=== PATIENT | female | born 1980 | race Caucasian/White ===

== ENCOUNTER 2021-03-17 20:19 | Emergency (ER) | payer OTHER ==
[~2021-03-17] VITALS: Ht 167.6 cm; Wt 85.0 kg
[2021-03-17] MEDS ORDERED: FLUORESCEIN OPHTHALMIC 1 MG STRIP EACHEYE ONE (20:30)
[2021-03-17] MEDS ORDERED: PROPARACAINE OPHTH 0.5%, 15ML EACHEYE ONE (20:30)
[2021-03-17] MEDS ORDERED: FLUORESCEIN OPHTHALMIC 1 MG STRIP ONE (23:00)
[2021-03-17] MEDS ORDERED: PROPARACAINE OPHTH 0.5%, 15ML ONE (23:00)
[2021-03-17 23:04] VITALS: BP 149/76
--- NOTE | 2021-03-17 23:06 | NUR ---
PT AMBULATED STEADILY TO ROOM FROM LOBBY WITH RN
== END 2021-03-18 00:16 | disposition home or self-care (01) ==
LOC: ED 23:56
DX: T15.02XA Foreign body in cornea, left eye, initial encounter (principal); X58.XXXA Exposure to other specified factors, initial encounter; Y93.89 Activity, other specified; Y92.89 Other specified places as the place of occurrence of the external cause; Y99.8 Other external cause status
CPT/HCPCS: 99283